=== PATIENT | male | born 1935 | race African-American/Black ===

== ENCOUNTER 2016-10-08 06:52 | Emergency (ER) | payer OTHER, MEDICAID ==
[~2016-10-08] VITALS: Ht 182.9 cm; Wt 73.0 kg
[~2016-10-08 06:52] MED LIST: AMLO1CAP61 PO; LINZESS PO; LOSA100T14 PO; NAPR-681 PO; OMEP20CA10 PO; TAMS0.4C31 PO
[2016-10-08 07:42] LABS: HEMATOCRIT 39.7 % (42.0-52.0); HEMOGLOBIN 13.5 g/dL (14.0-18.0); MEAN CORPUSCULAR HEMOGLOBIN 32.2 pg (28.0-32.0); MEAN CORPUSCULAR VOLUME 94.7 fL (80.0-94.0); PLATELET 134 x1000/uL (130-400)
[2016-10-08 07:54] LABS: CARBON DIOXIDE 29 mEq/L (21-32); CHLORIDE 106 mEq/L (98-107)
[2016-10-08] MEDS ORDERED: MECLIZINE 12.5MG TABLET PO ONE (08:15)
[2016-10-08 09:12] VITALS: BP 171/93
== END 2016-10-08 10:37 | disposition home or self-care (01) ==
LOC: ER 06:54
DX: R42 Dizziness and giddiness (principal); I10 Essential (primary) hypertension; D64.9 Anemia, unspecified; Z87.891 Personal history of nicotine dependence; Z98.890 Other specified postprocedural states
CPT/HCPCS: 36415; 80048; 85027; 99284; J8597